=== PATIENT | female | born 2000 | race American Indian/Alaskan Native ===

== ENCOUNTER 2021-05-10 17:51 | Emergency (ER) | payer MEDICAID ==
[2021-05-10 19:47] VITALS: BP 121/82
--- NOTE | 2021-05-10 19:50 | Emergency Department Report ---
ED Female HPI - General Chief complaint: Urogenital-Female Stated complaint: YEAST INFECTION Time Seen by Provider: 05/10/21 19:38 Source: patient Mode of arrival: Ambulatory Limitations: No Limitations - History of Present Illness Initial comments: Patient 20-year-old female treated with antibiotics for dental infection now with yeast infection perineum states irritation redness itching x3 days. Patient has had similar symptoms before resulting in yeast infection. Patient denies vaginal discharge there is no dysuria, frequency no hematuria back pain no concern for STI. Is been no fevers no chills no abdominal pain no nausea or vomiting. There are no other relieving or exacerbating factors. MD Complaint: other - Related Data Previous Rx's Medication Instructions Recorded Last Taken Type Fluconazole [Diflucan TAB] 200 mg PO QDAY #1 tablet 05/10/21 Unknown Rx Miconazole 2% [Monistat 7 Vag 1 applicator VG QHS 7 Days #1 tube 05/10/21 Unknown Rx Cream] ED Review of Systems ROS: Stated complaint: YEAST INFECTION Other details as noted in HPI Constitutional: denies: chills, fever Eyes: denies: eye pain, eye discharge, vision change ENT: denies: ear pain, throat pain Respiratory: denies: cough, shortness of breath, wheezing Cardiovascular: denies: chest pain, palpitations Endocrine: no symptoms reported Gastrointestinal: denies: abdominal pain, nausea, diarrhea Genitourinary: other (perineal rash ) Musculoskeletal: denies: back pain, joint swelling, arthralgia Skin: rash (perineal ). denies: lesions Neurological: denies: headache, weakness, paresthesias Psychiatric: denies: anxiety, depression Hematological/Lymphatic: as per HPI ED Past Medical Hx - Past Medical History Previous Medical History?: No - Surgical History Past Surgical History?: No - Social History Smoking Status: Never Smoker Substance Use Type: None - Medications Home Medications: Home Medications Medication Instructions Recorded Confirmed Last Taken Type Fluconazole [Diflucan TAB] 200 mg PO QDAY #1 tablet 05/10/21 Unknown Rx Miconazole 2% [Monistat 7 Vag 1 applicator VG QHS 7 Days #1 tube 05/10/21 Unknown Rx Cream] ED Physical Exam - General Limitations: No Limitations General appearance: alert, in no apparent distress - Head Head exam: Present: atraumatic, normocephalic - Eye Eye exam: Present: normal appearance, EOMI Pupils: Present: normal accommodation - ENT ENT exam: Present: mucous membranes moist - Neck Neck exam: Present: normal inspection - Respiratory Respiratory exam: Present: normal lung sounds bilaterally. Absent: respiratory distress - Cardiovascular Cardiovascular Exam: Present: regular rate, normal rhythm. Absent: systolic murmur, diastolic murmur, rubs, gallop - GI/Abdominal GI/Abdominal exam: Present: soft, normal bowel sounds. Absent: distended, tenderness - Rectal Rectal exam: Present: deferred - External exam: Present: other (deferred by patient ) - Extremities Exam Extremities exam: Present: normal inspection, full ROM. Absent: tenderness - Back Exam Back exam: Present: normal inspection, full ROM. Absent: tenderness, CVA tenderness (R), CVA tenderness (L) - Neurological Exam Neurological exam: Present: alert, oriented X3, CN II-XII intact, normal gait - Psychiatric Psychiatric exam: Present: normal affect, normal mood - Skin Skin exam: Present: warm, dry, intact, normal color. Absent: rash ED Course Vital Signs 05/10/21 18:29 Temperature 98.3 F Pulse Rate 73 Respiratory 18 Rate Blood Pressure 98/58 O2 Sat by Pulse 98 Oximetry ED Medical Decision Making - Medical Decision Making This consistent with yeast infection plan DC with prescription for Diflucan, follow-up with primary care doctor in 2 to 3 days. Patient verbalized agreement understanding discharge plan. Patient DC'd home stable condition at this time. Critical care attestation.: If time is entered above; I have spent that time in minutes in the direct care of this critically ill patient, excluding procedure time. ED Disposition Clinical Impression: Candidiasis of vulva and vagina Disposition: 01 HOME / SELF CARE / HOMELESS Is pt being admited?: No Does the pt Need Aspirin: No Condition: Stable Instructions: Vaginal Yeast Infection, Adult Additional Instructions: take medication as prescribed follow up with primary care doctor in 2-3 days. return to emergency if symptoms worsen. Prescriptions: Miconazole 2% [Monistat 7 Vag Cream] 1 applicator VG QHS 7 Days #1 tube Fluconazole [Diflucan TAB] 200 mg PO QDAY #1 tablet Referrals: [facility] [Provider Group] - 3-5 Days Forms: Work/School Release Form(ED) Time of Disposition: 19:50
== END 2021-05-10 20:09 | disposition home or self-care (01) ==
LOC: ED 17:51
DX: B37.3 Candidiasis of vulva and vagina (principal)
CPT/HCPCS: 99282